=== PATIENT | male | born 1985 | race Caucasian/White ===

== ENCOUNTER 2023-05-17 10:32 | Inpatient (IN) | payer OTHER ==
[2023-05-17 11:02] VITALS: BMI 21.8
[2023-05-17] MEDS ORDERED: ONDANSETRON *ODT* 4 MG TABLET SL PRN (12:16)
[2023-05-17] MEDS ORDERED: BENZOCAINE/MENTHOL (CHLORASEPTIC ) LOZENGE MM PRN (12:16)
[2023-05-17] MEDS ORDERED: DICYCLOMINE HCL 10 MG CAPSULE PO PRN (12:16)
[2023-05-17] MEDS ORDERED: BISMUTH SUBSALICYLATE 524 MG/30 ML PO PRN (12:16)
[2023-05-17] MEDS ORDERED: NALOXONE HCL (KLOXXADO) 8 MG SPRAY NS PRN (12:16)
[2023-05-17] MEDS ORDERED: guaiFENesin 600 MG TABLET.ER (FP) PO PRN (12:16)
[2023-05-17] MEDS ORDERED: ACETAMINOPHEN 325 MG TABLET (FP) PO PRN (12:16)
[2023-05-17] MEDS ORDERED: BENZONATATE 200 MG CAPSULE PO PRN (12:16)
[2023-05-17] MEDS ORDERED: AMMONIUM LACTATE 12% LOTION 225 GM BOTTLE TP PRN (12:16)
[2023-05-17] MEDS ORDERED: METHOCARBAMOL 500 MG TABLET PO PRN (12:16)
[2023-05-17] MEDS ORDERED: IBUPROFEN 400 MG TABLET (FP) PO PRN (12:16)
[2023-05-17] MEDS ORDERED: MAG HYDROX/AL HYDROX/SIMETH 30 ML UNIT-DOSE CUP PO PRN (12:16)
[2023-05-17] MEDS ORDERED: NALOXONE HCL 0.4 MG/ML VIAL IM PRN (12:16)
[2023-05-17] MEDS ORDERED: cloNIDine HCL 0.1 MG TABLET PO PRN (12:16)
[2023-05-17] MEDS ORDERED: LOPERAMIDE HCL 2 MG CAPSULE PO PRN (12:16)
[2023-05-17] MEDS ORDERED: MAGNESIUM HYDROX 2400MG/30ML ORAL SUSPENSION 30 ML CUP PO PRN (12:16)
[2023-05-17] MEDS ORDERED: COLLOIDAL OATMEAL 1 BAR EACH TP PRN (12:16)
[2023-05-17] MEDS ORDERED: IBUPROFEN 600 MG TABLET (FP) PO PRN (12:16)
[2023-05-17] MEDS ORDERED: NICOTINE POLACRILEX 2 MG GUM BUC PRN (12:16)
[2023-05-17] MEDS ORDERED: POLYETHYLENE GLYCOL (HEALTHYLAX) 3350 17 GM PACKET PO PRN (12:16)
[2023-05-17] MEDS ORDERED: NICOTINE 10 MG CARTRIDGE (INHALER) IH PRN (12:16)
[2023-05-17] MEDS ORDERED: methaDONE HCL 10 MG TABLET (FOR DETOX USE ONLY) ONE (12:31)
[2023-05-17] MEDS ORDERED: IBUPROFEN 600 MG TABLET (FP) PO ONE (12:31)
[2023-05-17] MEDS ORDERED: methaDONE HCL 10 MG TABLET (FOR DETOX USE ONLY) PO ONE (12:45)
[2023-05-17] MEDS: diazePAM 5 MG TABLET PO SCH ×2 (17:30→22:11)
[2023-05-17 17:40] LABS: HEMATOCRIT 36.1 % (35.4-49); HEMOGLOBIN 12.2 GM/dL (11.7-16.9); MCH 30.3 pg (25.7-33.7); MCHC 33.9 g/dl (32.0-35.9); MEAN CELL VOLUME 89.6 fl (80-96); MEAN PLT VOLUME 8.1 fl (7.5-11.1); PLATELET COUNT 200 10^3/uL (134-434); RBC 4.02 M/mm3 (4.00-5.60); RDW 13.6 % (11.9-15.9); WHITE BLOOD COUNT 7.3 K/mm3 (4.0-10.0)
[2023-05-17 17:42] LABS: POTASSIUM 3.6 mmol/L (3.5-5.1)
[2023-05-17 17:46] LABS: BLOOD UREA NITROGEN 12.2 mg/dL (7-18)
[2023-05-17 17:47] LABS: ALBUMIN 3.4 g/dl (3.4-5.0); CALCIUM 8.9 mg/dL (8.5-10.1)
[2023-05-17 17:49] LABS: CREATININE 0.9 mg/dL (0.55-1.3)
[2023-05-17 17:51] LABS: BILIRUBIN,TOTAL 0.6 mg/dL (0.2-1); TOT PROT 6.2 g/dl (6.4-8.2)
[2023-05-17 20:49] VITALS: RESP 18
[2023-05-17] MEDS ORDERED: THIAMINE HCL 100 MG TABLET (FP) PO SCH (22:00)
[2023-05-17] MEDS ORDERED: MELATONIN 5 MG TABLETS PO SCH (22:00)
[2023-05-17] MEDS ORDERED: SUVOREXANT 10 MG TABLET PO PRN (22:00)
[2023-05-18] MEDS: diazePAM 5 MG TABLET PO SCH ×3 (05:38→18:09)
[2023-05-18] MEDS ORDERED: PRENATAL VITAMINS W/ FOLIC ACID TABLET (FP) PO SCH (10:00)
[2023-05-18 17:27] VITALS: BP 127/79; PULSE 77; TEMP 97.7
[2023-05-19] MEDS ORDERED: diazePAM 5 MG TABLET PO SCH (06:00)
[2023-05-19] MEDS ORDERED: methaDONE HCL 10 MG TABLET (FOR DETOX USE ONLY) PO ONE (10:00)
[2023-05-20] MEDS ORDERED: diazePAM 5 MG TABLET PO SCH (06:00)
[2023-05-21] MEDS ORDERED: diazePAM 5 MG TABLET PO ONE (06:00)
[2023-05-21] MEDS ORDERED: methaDONE HCL 10 MG TABLET (FOR DETOX USE ONLY) PO ONE (10:00)
== END 2023-05-18 18:00 | disposition left against medical advice (07) | DRG 770 ==
LOC: YASAS 10:32 → Y6N 12:29
PROVIDERS: ADMIT Allergy & Immunology; ATTEND Surgery
PROC: HZ2ZZZZ Detoxification Services for Substance Abuse Treatment (ICD-10-PCS; principal; 2023-05-17)
DX: F11.23 Opioid dependence with withdrawal (principal); F13.230 Sedative, hypnotic or anxiolytic dependence with withdrawal, uncomplicated; F17.210 Nicotine dependence, cigarettes, uncomplicated; F19.282 Other psychoactive substance dependence with psychoactive substance-induced sleep disorder; F41.8 Other specified anxiety disorders; Z86.19 Personal history of other infectious and parasitic diseases
CPT/HCPCS: 36415; 80053; 85027; 86780; 87635